=== PATIENT | female | born 1975 | race Caucasian/White ===

== ENCOUNTER 2016-03-08 05:45 | Inpatient (IN) | payer MEDICAID ==
[~2016-03-08] VITALS: Ht 149.9 cm; Wt 78.7 kg
[2016-03-08] VITALS (11 sets, daily range): BP systolic 120–143; BP diastolic 60–85; PULSE 61–77; RESP 18–20; Ht 149.9 cm; Wt 78.7 kg
[2016-03-08] MEDS ORDERED: LACTATED RINGER'S 1,000 ML IV SCH (06:11)
[2016-03-08] MEDS ORDERED: FOLI0.8C PO (06:15)
[2016-03-08] MEDS ORDERED: PREN1TAB62 PO (06:15)
[2016-03-08] MEDS ORDERED: FERR325C PO (06:16)
--- NOTE | 2016-03-08 06:28 | TRIAGE ---
OB Triage Datetime Report Generated by CPN: 03/08/2016 06:28 Datetime: 03/08/2016 06:28 Membrane Status: Intact Datetime: 03/08/2016 06:26 Stage of : Labor Time of Arrival: 03/08/2016 06:18 EGA: 38.6 Arrived By: Stretcher Arrived From: TRIAGE Datetime: 03/08/2016 06:13 Labor Evaluation Frequency: 2-4 Monitor Mode: External Duration (sec)2399: 90-120 Pattern: Normal: <= 5 Contractions in 10 Minutes Heart Rate FHR Baseline Rate: 145 Monitor Mode: External US FHR Baseline Changes: No Baseline Change Variability: Moderate 6-25 bpm Datetime: 03/08/2016 06:09 Vaginal Exam Dilatation (cms): 7.0 Effacement (%): 80 Station: -1 Exam By: SUJATA Vaginal Bleeding: None Cervix, Consistency: Soft Cervix, Position: Midposition Presentation 'A': Cephalic Datetime: 03/08/2016 05:58 Assessment Type: Triage Maternal Assessment Level of Consciousness: Fully Conscious DTR's/Clonus: DTRs 2+; No Clonus Headache: Denies Blurred Vision: No Respiratory Effort: Unlabored; Regular Rhythm; Equal Expansion Breath Sounds, Left: Clear and Equal Breath Sounds, Right: Clear and Equal Nausea/Vomiting: Denies RUQ Epigastric Pain: Denies Facial Edema: None Fall Risk Assessment History of Falling: (0) No Secondary Diagnosis: (0) No Ambulatory Aid: (0) Bedrest/Nurse Assist IV Therapy: (0) No Gait: (0) Normal/Bedrest/Immobile Mental Status: (0) Oriented to Own Ability Fall Score: 0 Fall Risk Score Definition: No Risk: No action required Datetime: 03/08/2016 05:57 EGA: 38.6 Datetime: 03/08/2016 05:56 Time of Arrival: 03/08/2016 05:45 Arrived By: Ambulatory Arrived From: Home Chief Complaint: UC'S SINCE 01:00 Movement: Present Contractions: Regular Time Contractions Began: 03/08/2016 01:00 Contractions: Q5MIN Rupture of Membranes: Denies Vaginal Bleeding: None Vaginal Discharge: Denies Recent Sexual Intercouse: Denies Abdominal Trauma: Not Applicable Patient Complaints: Contractions Time Provider Notified: 03/08/2016 06:25 Provider Notified: HOLGER Initial Plan: EFM, SVE, CALL OB Datetime: 03/08/2016 05:55 Monitor Mode: Palpation Quality: Mild
[2016-03-08] MEDS ORDERED: BUTORPHANOL 2 MG INJ IV PRN (06:30)
[2016-03-08] MEDS ORDERED: OXYTOCIN 30 UNITS/LR 500 ML IV SCH (06:30)
[2016-03-08] MEDS ORDERED: MISOPROSTOL 200 MCG TAB PR PRN (06:30)
[2016-03-08] MEDS ORDERED: OXYTOCIN 30 UNITS/LR 500 ML IV PRN (06:30)
[2016-03-08] MEDS ORDERED: LACTATED RINGER'S 1,000 ML IV PRN (06:30)
[2016-03-08] MEDS ORDERED: METHYLERGONOVINE 0.2 MG INJ IM PRN (06:30)
[2016-03-08] MEDS ORDERED: CARBOPROST 250 MCG INJ IM PRN (06:30)
[2016-03-08] MEDS ORDERED: AMPICILLIN 2 GM/NS (PMX) 100 ML IV ONE (06:30)
[2016-03-08 06:55] LABS: ADD UMIC YES; URINE BILIRUBIN (Dip) NEGATIVE (NEGATIVE); URINE BLOOD (Dip) 1+ (NEGATIVE); URINE COLOR LT. YELLOW (YELLOW); URINE GLUCOSE (Dip) NEGATIVE (NEGATIVE); URINE KETONES (Dip) NEGATIVE (NEGATIVE); URINE LEUKOCYTE ESTERASE (Dip) 2+ (NEGATIVE); URINE NITRITE (Dip) NEGATIVE (NEGATIVE); URINE TOTAL PROTEIN (Dip) NEGATIVE (NEGATIVE); URINE UROBILINOGEN (Dip) 0.2 E.U./dL (0.1-1.0)
[2016-03-08 07:22] LABS: BACTERIA,URINE FEW; SQUAMOUS EPITHELIAL CELL,UR MODERATE
[2016-03-08 07:26] LABS: BASOPHIL # 0.1 10^3/ul (0.0-0.1); BASOPHILS % 0.6 % (0.0-2.0); EOSINOPHILS % 0.2 % (0.0-7.0); HEMATOCRIT 39.5 % (37.0-47.0); HEMOGLOBIN 13.3 g/dl (12.0-16.0); LYMPHOCYTES % 23.8 % (15.0-51.0); MEAN CORPUSCULAR HEMOGLOBIN 31.2 pg (29.0-33.0); MEAN CORPUSCULAR HGB CONC 33.6 g/dl (32.0-37.0); MEAN CORPUSCULAR VOLUME 92.8 fl (82.0-101.0); MEAN PLATELET VOLUME 11.4 fl (7.4-10.4); MONOCYTE # 0.6 10^3/ul (0.3-0.9); MONOCYTES % 6.5 % (0.0-11.0); NEUTROPHIL # 5.9 10^3/ul (1.6-7.5); NEUTROPHILS % 68.9 % (39.0-77.0); PLATELET COUNT 119 10^3/UL (140-440); RED BLOOD COUNT 4.25 10^6/ul (4.20-5.40); RED CELL DISTRIBUTION WIDTH 14.1 % (11.5-14.5); UNCORRECTED WBC 8.5 10^3/ul (4.8-10.8); WHITE BLOOD COUNT 8.5 10^3/ul (4.8-10.8)
[2016-03-08 07:33] LABS: CONDITION 1
[2016-03-08 07:50] LABS: ALBUMIN 3.3 g/dl (3.3-4.9)
[2016-03-08 07:51] LABS: POTASSIUM 3.7 mmol/L (3.5-5.1)
[2016-03-08 07:53] LABS: BILIRUBIN,INDIRECT 0.3 mg/dl (0-1.1); BILIRUBIN,TOTAL 0.3 mg/dl (0.2-1.3); CREATININE 0.44 mg/dl (0.44-1.00)
[2016-03-08 07:54] LABS: ALBUMIN/GLOBULIN RATIO 0.94; CALCIUM 8.8 mg/dl (8.4-10.2); INR 0.91; PROTIME 12.3 Sec (12.2-14.2); TOTAL PROTEIN 6.8 g/dl (6.1-8.1); URIC ACID 4.6 mg/dl (3.1-7.9)
[2016-03-08] MEDS: OXYTOCIN 30 UNITS/LR 500 ML IV SCH ×5 (09:25→16:30)
[2016-03-08] MEDS: LIDOCAINE 1% (MPF) 30 ML INJ INJ PRN ×2 (09:25→11:04)
[2016-03-08] MEDS ORDERED: IBUPROFEN 600 MG TAB PO ONE (10:00)
--- NOTE | 2016-03-08 10:07 | LDN ---
Date/Time of Note Date/Time of Note DATE: 03/08/16 TIME: 10:04 Delivery Summary Normal spontaneous vaginal delivery of a baby boy from NELY position shoulder delivered without any difficulty followed with the rest of the baby's body, placenta spontaneous expulsion inspected complete patient sustained small perineal abrasion which was repaired with 3 interrupted 4/0 chromic catgut estimated blood loss 206 mL Placenta Delivered: Spontaneously Perineum intact?: No Perineal laceration repair: First degree perineal abrasion Anesthesia type: Local Sponge & Needle done & correct: Yes All needle counts correct: Yes Any foreign bodies felt in the: No Problems: BUTCH MCMAHON MD Mar 08, 2016 10:07
--- NOTE | 2016-03-08 10:14 | DELSUM ---
Delivery Summary A-C Datetime Report Generated by CPN: 03/08/2016 10:14 DELIVERY PERSONNEL [employer] Technician: Naomy Gibbs MATERNAL INFORMATION Delivery Anesthesia: Local Medications in Delivery: OXYT 30 UNITS Estimated Blood Loss (ml): 200 Placenta Cultured: No Maternal Complications: None LABOR SUMMARY EDC: 03/16/2016 00:00 No. Babies in Womb: 1 Attempted: No Labor Anesthesia: None LABOR INFORMATION Reason for Induction: Not Applicable Onset of Labor: 03/08/2016 01:00 Oxytocin: N/A Group B Beta Strep: Negative Group B Beta Strep: Negative Antibiotics # of Doses: 1 Steroids Given: None Reason Steroids Not Administered: Not Applicable MEMBRANES Membranes Rupture Method: Artificial Rupture of Membranes: 03/08/2016 08:14 Length of Rupture (hr): 1.08 Amniotic Fluid Color: Clear Amniotic Fluid Amount: Large Amniotic Fluid Odor: Normal STAGES OF LABOR Stage 3 hr: 0 Stage 3 min: 6 Total Time in Labor hr: 8 Total Time in Labor min: 25 VAGINAL DELIVERY Episiotomy: None Laceration Extension: First Degree Laceration Type: Perineal Laceration Repair: Yes Initial Vag Sponge Count: 20 Final Vag Sponge Count: 20 Initial Vag Sharps Count: 2 Final Vag Sharps Count: 2 Sponge Count Correct: Yes; Vaginal Sweep Performed Sharps Count Correct: Yes BABY A INFORMATION Infant Delivery Date/Time: 03/08/2016 09:19 Method of Delivery: Vaginal Born in Route : No : N/A Forceps: N/A Vacuum Extraction: N/A Shoulder Dystocia : N/A SHOULDER DYSTOCIA BABY A Infant Delivery Date/Time: 03/08/2016 09:19 PRESENTATION/POSITION BABY A Presentation: Cephalic Presentation: Cephalic Presentation: Cephalic Presentation: Cephalic Cephalic Presentation: Vertex Breech Presentation: N/A PLACENTA INFORMATION BABY A Placenta Delivery Time : 03/08/2016 09:25 Placenta Method of Delivery: Spontaneous Placenta Status: Delivered SCORES BABY A Heart Rate 1 min: >100 bpm Resp Effort 1 min: Good Cry Reflex Irritability 1 min: Cough/Sneeze/Pulls Away Muscle Tone 1 min: Active Motion Color 1 min: Body Morada, Extremit Blue Resuscitation Effort 1 min: Tactile Stimulation SCORE 1 MIN: 9 Heart Rate 5 min: >100 bpm Resp Effort 5 min: Good Cry Reflex Irritability 5 min: Cough/Sneeze/Pulls Away Muscle Tone 5 min: Active Motion Color 5 min: Body Morada, Extremit Blue Resuscitation Effort 5 min: N/A SCORE 5 MIN: 9 INFORMATION BABY A Gestational Age at Delivery: 38.6 Gestational Status: Early Term- 37- 38.6 Weeks Infant Outcome : Liveborn Infant Condition : Stable Infant Sex: Male IDENTIFICATION/MEDS BABY A ID Band Number: [id number] ID Band Location: Right Leg; Left Arm Sensor Applied: Yes Sensor Number: [id number] Sensor Location : Cord Clamp Vitamin K Given : Not Given Erythromycin Given: Not Given WEIGHT/LENGTH BABY A Birthweight (gm): 4285 Infant Weight (lb): 9 Weight (oz): 7 Infant Length (in): 19.75 Infant Length (cm): 50.17 CORD INFORMATION BABY A No. Cord Vessels: 3 Nuchal Cord : N/A Cord Blood Taken: Yes Infant Suction: Mouth; Nose ASSESSMENT BABY A Infant Complications: None Physical Findings at Delivery: Within Normal Limits Infant Respirations: Appears Normal Hide House Supervisor/ALS Called : Yes Care By: pop cook Transferred To: Remains with Mother
--- NOTE | 2016-03-08 10:14 | OPRPT ---
Intraop Record Datetime Report Generated by CPN: 03/08/2016 10:14 Datetime: 03/08/2016 06:02 Drug Allergies/Reactions: No Known Allergy (03/08/2016) Datetime: 03/08/2016 05:57 Drug Allergies/Reactions: PT. DENIES Food Allergies/Reactions: PT. DENIES Latex Allergies/Reactions: No Latex Allergies
--- NOTE | 2016-03-08 10:15 | HP ---
Date/Time of Note Date/Time of Note DATE: 03/08/16 TIME: 10:09 OB - History Hx of Present Free Text/Dictation 40 years old female 6 para 5 with a EDC March 16, 2016 admitted to [facility] in labor transferred to labor and delivery room for delivery This patient has been under the care of the [facility] [place] and her was not complicated with gestational diabetes or -induced hypertension . Obstetrical history; [place] at age 13 history of 5 previous pregnancies with normal vaginal delivery no other surgery or hospitalization recorded in the patient's . Chief Complaint: labor pain Estimated Due Date: Mar 20, 2016 : 6 Para: 5 Care: Good Care Ultrasounds: Normal mid trimester US Obstetrical Complications: None Medical Complications: None Past Family/Social History * Past Medical, Surgical, Family and Obstetric Histories reviewed from chart. Rubella: immune RPR/VDRL: Negative GBS Status: Negative HBsAG: Negative OB Admission Exam Vital Signs Vital Signs Vital Signs Date Time Temp Pulse Resp B/P Pulse Ox O2 Delivery O2 Flow Rate FiO2 03/08/16 09:52 76 20 137/71 Room Air 03/08/16 06:29 97.9 Physical Exam HEENT: WNL Heart: Rhythm Normal Lungs: Clear, Equal Abdomen: WNL Extremities: Normal Reflexes: Normal Cervical Dilatation: 2cm Effacement: 75% Station: -1 Membranes: Intact Heart Rate: 130's Accelerations: Accelerations Present Varibility: Moderate Contractions on Admission: 6-10 Minutes Apart Intensity: Moderate Last 72 hours Lab Results CBC & BMP 03/08/16 06:30 Liver Function Test 03/08/16 06:30 Alanine Aminotransferase (ALT/SGPT) 39 Albumin 3.3 Alkaline Phosphatase 149 H Aspartate Amino Transf (AST/SGOT) 25 Direct Bilirubin 0.00 Total Protein 6.8 BUTCH MCMAHON MD Mar 08, 2016 10:15
[2016-03-08] MEDS ORDERED: OXYCODONE/ASPIRIN (4.88/325) TAB PO ONE (10:30)
[2016-03-08] MEDS ORDERED: AMPICILLIN 1 GM/NS (PMX) 50 ML IV SCH (10:30)
[2016-03-08] MEDS ORDERED: ACETAMINOPHEN 325 MG TAB PO PRN (12:30)
[2016-03-08] MEDS ORDERED: ONDANSETRON 4 MG INJ IV PRN (12:30)
[2016-03-08] MEDS ORDERED: LANOLIN 7 GM TUBE TOP PRN (12:30)
[2016-03-08] MEDS ORDERED: BENZOCAINE 20% 56 ML SPRAY TOP PRN (12:30)
[2016-03-08] MEDS ORDERED: DIBUCAINE 1% 30 GM OINT PR PRN (12:30)
[2016-03-08] MEDS ORDERED: ACETAMINOPHEN/CODEINE #3 TAB PO PRN ×2 (12:30)
[2016-03-08] MEDS ORDERED: OXYCODONE/ASPIRIN (4.88/325) TAB PO PRN ×2 (12:30)
[2016-03-08] MEDS ORDERED: WITCH HAZEL/GLYCERIN PAD PR PRN (12:30)
[2016-03-08] MEDS: IBUPROFEN 600 MG TAB PO SCH ×2 (17:18→23:37)
[2016-03-08] MEDS: SENNA/DOCUSATE NA (8.6MG/50MG) TAB PO SCH (21:49)
[2016-03-09 04:00] VITALS: BP 125/72; PULSE 74; RESP 17
[2016-03-09] MEDS: IBUPROFEN 600 MG TAB PO SCH ×4 (05:45→23:35)
[2016-03-09 06:31] LABS: BASOPHILS % 0.3 % (0.0-2.0); EOSINOPHILS % 0.5 % (0.0-7.0); HEMATOCRIT 33.4 % (37.0-47.0); HEMOGLOBIN 11.5 g/dl (12.0-16.0); LYMPHOCYTES # 2.3 10^3/ul (0.8-2.9); MEAN CORPUSCULAR HEMOGLOBIN 31.9 pg (29.0-33.0); MEAN CORPUSCULAR HGB CONC 34.5 g/dl (32.0-37.0); MEAN CORPUSCULAR VOLUME 92.4 fl (82.0-101.0); MEAN PLATELET VOLUME 10.2 fl (7.4-10.4); MONOCYTE # 0.6 10^3/ul (0.3-0.9); MONOCYTES % 5.7 % (0.0-11.0); NEUTROPHIL # 7.1 10^3/ul (1.6-7.5); NEUTROPHILS % 70.5 % (39.0-77.0); PLATELET COUNT 105 10^3/UL (140-440); RED BLOOD COUNT 3.62 10^6/ul (4.20-5.40); RED CELL DISTRIBUTION WIDTH 14.3 % (11.5-14.5)
[2016-03-09 06:44] LABS: CONDITION 1
[2016-03-09 08:42] VITALS: BP 121/60; PULSE 74; RESP 18
[2016-03-09] MEDS: SENNA/DOCUSATE NA (8.6MG/50MG) TAB PO SCH ×2 (09:06→21:37)
--- NOTE | 2016-03-09 10:12 | PN ---
Date/Time of Note Date/Time of Note DATE: 03/09/16 TIME: 10:10 OB Subjective Subjective Subjective day 1 Afebrile vital sign is stable abdomen soft lochia normal extremity normal ambulation recommended lab review within normal possible discharge home BUTCH Eldridge MD Mar 09, 2016 10:11
[2016-03-09 15:53] VITALS: BP 113/53; PULSE 74; RESP 18
[2016-03-09 20:20] VITALS: BP 129/70; PULSE 68; RESP 18
[2016-03-10 04:10] VITALS: BP 114/64; PULSE 65; RESP 17
[2016-03-10] MEDS: IBUPROFEN 600 MG TAB PO SCH ×2 (05:21→12:12)
[2016-03-10 08:00] VITALS: BP 139/78; PULSE 74; RESP 18
[2016-03-10] MEDS ORDERED: MEASLES,MUMPS,RUBELLA VACCINE INJ SC* ONE (09:00)
[2016-03-10] MEDS: SENNA/DOCUSATE NA (8.6MG/50MG) TAB PO SCH (09:00)
--- NOTE | 2016-03-10 09:18 | PD.PPDC ---
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
--- NOTE | 2016-03-10 09:20 | DS ---
Date/Time of Note Date/Time of Note DATE: 03/10/16 TIME: 09:19 Obstetrical Discharge Record Final Diagnosis Final Diagnosis: Term delivered Vaginal Delivery Obstetrical Delivery: Spontaneous Condition on Discharge Physical Assessment Last Vitals: day 2 vital sign is stable abdomen soft uterus firm lochia normal extremity normal instructions given advised to make appointment in 2 weeks . Voiding: Yes Bowel Movement: Yes Breast: Soft, non-tender, Filling Fundus: Firm Calf Tenderness: No Patient Condition: Good BUTCH MCMAHON MD Mar 10, 2016 09:20
== END 2016-03-10 16:23 | disposition home or self-care (01) | DRG 775 ==
LOC: OBT 05:45 → L-D 05:45 → OBT 06:15 → L-D 06:15 → PP1 11:51
PROVIDERS: ADMIT Obstetrics & Gynecology; ATTEND Obstetrics & Gynecology
PROC: 10E0XZZ Delivery of Products of Conception, External Approach (ICD-10-PCS; principal; 2016-03-08)
PROC: 10907ZC Drainage of Amniotic Fluid, Therapeutic from Products of Conception, Via Natural or Artificial Opening (ICD-10-PCS; 2016-03-08)
PROC: 0HQ9XZZ Repair Perineum Skin, External Approach (ICD-10-PCS; 2016-03-08)
PROC: 4A1HXCZ Monitoring of Products of Conception, Cardiac Rate, External Approach (ICD-10-PCS; 2016-03-08)
DX: O70.0 First degree perineal laceration during delivery (principal); O09.523 Supervision of elderly multigravida, third trimester; Z3A.38 38 weeks gestation of pregnancy; Z37.0 Single live birth
CPT/HCPCS: 80053; 81001; 81003; 84560; 85025; 85384; 85610; 85730; 86592; 86900; 86901; G0463; J2590; J7120

== ENCOUNTER 2016-04-01 07:53 | Emergency (ER) | payer MEDICAID ==
[~2016-04-01] VITALS: Wt 68.5 kg
[~2016-04-01 07:53] MED LIST: FERR325C PO; FOLI0.8C PO; PREN1TAB62 PO
[2016-04-01] MEDS ORDERED: ONDANSETRON (ODT) 4 MG TAB ODT STA (08:44)
--- NOTE | 2016-04-01 08:48 | ERD ---
ER Documentation Chief Complaint Date/Time DATE: 04/01/16 TIME: 08:45 Chief Complaint headache and left eye pain. pt feels like bp is high. no neuro def HPI This patient is a 40-year-old female with history of hypertension presenting to the emergency department for headache which is been ongoing intermittently for the past 3 weeks, but worsening yesterday. The patient rates the pain a 7 7 out of 10 and states it is unilateral. The patient does have history of migraines. The patient additionally reports mild nausea but no vomiting or diarrhea. The patient denies any fevers, urinary symptoms, vision changes, dizziness, syncope, chest pain, shortness of breath, or other symptoms. ROS All systems reviewed and are negative except as per history of present illness. Medications Home Meds Reported Medications Ferrous Sulfate (Iron) 325 Mg Capsule.er, 325 MG PO, CAP 03/08/16 Folic Acid (Folic Acid) 0.8 Mg Capsule, 0.8 MG PO, CAP 03/08/16 Vit-Iron Fumarate-FA ( Vitamin Tablet) 1 Each Tablet, 1 TAB PO DAILY, TAB 03/08/16 Allergies Allergies: Coded Allergies: No Known Allergy (Unverified , 03/08/16) PMhx/Soc Medical and Surgical Hx: pt denies Medical Hx, pt denies Surgical Hx Hx Alcohol Use: No Hx Substance Use: No Hx Tobacco Use: No Smoking Status: Never smoker FmHx Noncontributory for chief complaint Physical Exam Vitals Vital Signs Date Time Temp Pulse Resp B/P Pulse Ox O2 Delivery O2 Flow Rate FiO2 04/01/16 11:00 139/83 04/01/16 10:00 166/98 04/01/16 09:03 156/92 04/01/16 09:02 172/76 04/01/16 07:57 98.2 76 21 163/82 99 Physical Exam INITIAL VITAL SIGNS: Reviewed by me. GENERAL: Alert and interactive. No acute distress. HEAD: Head is normocephalic and atraumatic. EYES: EOMI. No scleral icterus. No conjunctival injection. ENT: Moist mucosa. NECK: Supple. Full range of motion. RESPIRATORY: Normal respiratory effort. Clear breath sounds bilaterally. No wheezing, rales, or rhonchi. CV: Regular rate and rhythm. Normal S1 S2. No S3 or S4. No murmurs. ABDOMEN: Soft, non-distended, non-tender. No guarding. No rebound. No masses. EXTREMITIES: No deformity. SKIN: Warm and dry. NEUROLOGIC: Alert and oriented x 4. Speech is normal. Moves all extremities equally. No motor or sensory deficits noted. Cranial nerves are intact. Result Diagram: 04/01/1610 04/01/1610 Results 24 hrs Laboratory Tests Test 04/01/16 09:10 Activated Partial Thromboplast Time 29.1Sec Alanine Aminotransferase (ALT/SGPT) 45IU/L Albumin 4.1g/dl Albumin/Globulin Ratio 1.07 Alkaline Phosphatase 91IU/L Anion Gap 15 Aspartate Amino Transf (AST/SGOT) 26IU/L Basophils # 0.010^3/ul Basophils % 0.7% Blood Urea Nitrogen 9mg/dl Calcium Level 9.5mg/dl Carbon Dioxide Level 28mmol/L Chloride Level 104mmol/L Creatinine 0.60mg/dl Direct Bilirubin 0.00mg/dl Eosinophils # 0.110^3/ul Eosinophils % 1.8% Globulin 3.80g/dl Glucose Level 110mg/dl Hematocrit 44.4% Hemoglobin 15.5g/dl INR International Normalized Ratio 0.89 Indirect Bilirubin 0.3mg/dl Lymphocytes # 2.610^3/ul Lymphocytes % 35.5% Mean Corpuscular Hemoglobin 31.1pg Mean Corpuscular Hemoglobin Concent 35.0g/dl Mean Corpuscular Volume 88.8fl Mean Platelet Volume 10.0fl Monocytes # 0.410^3/ul Monocytes % 4.9% Neutrophils # 4.210^3/ul Neutrophils % 57.1% Nucleated Red Blood Cells # 0.010^3/ul Nucleated Red Blood Cells % 0.0/100WBC Platelet Count 84871^3/UL Potassium Level 3.9mmol/L Prothrombin Time 12.0Sec Prothrombin Time Ratio 0.9 Red Blood Count 5.0010^6/ul Red Cell Distribution Width 13.7% Sodium Level 143mmol/L Total Bilirubin 0.3mg/dl Total Protein 7.9g/dl Urine Bilirubin NEGATIVE Urine Clarity CLEAR Urine Color LT. YELLOW Urine Glucose NEGATIVE% Urine Hemoglobin 3+ Urine Ketones NEGATIVE Urine Leukocyte Esterase 2+ Urine Microscopic RBC 10-25/HPF Urine Microscopic WBC 10-25/HPF Urine Nitrite NEGATIVE Urine Specific [place] 1.015 Urine Squamous Epithelial Cells FEW Urine Total Protein NEGATIVE Urine Urobilinogen 0.2 E.U./dL Urine pH 7.0 White Blood Count 7.410^3/ul Current Medications Medications (Trade) Dose Ordered Sig/Annabel Route PRN Reason Start Time Stop Time Status Last Admin Dose Admin Acetaminophen/ Hydrocodone Bitart (Butner (5/325)) 1 tab ONCE ONCE PO 04/01/16 09:00 04/01/16 09:16 DC Ondansetron HCl (Zofran Odt) 4 mg ONCE STAT ODT 04/01/16 08:44 04/01/16 09:16 DC Acetaminophen (Tylenol Tab) 500 mg ONCE STAT PO 04/01/16 09:08 04/01/16 09:09 DC 04/01/16 09:16 Morphine Sulfate 4 mg 4 mg ONCE STAT IV 04/01/16 10:18 04/01/16 10:20 DC 04/01/16 10:29 Ceftriaxone Sodium (Rocephin) 50 ml @ 100 mls/hr ONCE ONCE IVPB 04/01/16 10:30 04/01/16 10:59 DC 04/01/16 10:28 Procedures/MDM 40-year-old female presents secondary to complaints of headache and mild nausea. On physical examination the patient's blood pressure slightly elevated at 163/82. On recheck the blood pressure was 172/86. I have ordered a CBC, CMP , PT, PTT, UA, looking for any signs of proteinuria or other abnormalities consistent with preeclampsia. Patient denies having history of high blood pressure. I spoke with the on-call laborist, Dr. Coyle, who recommended consulting the Internal Medicine doctor regarding this patient, since she is already 3 week post . The patient will be monitored closely in the department. The patient's blood pressure has reduced to 139/83 and she is feeling improved. I spoke with Dr. Moreno, supervising emergency department physician who advised to CT scan the patient's brain looking for any signs of encephalopathy or other abnormalities. He agreed with ED course and was kept aware of the patient's status during her time in the department. CT scan brain without contrast interpreted by radiologist: PROCEDURE: CT brain without contrast CLINICAL INDICATION: Headaches, hypertension, TECHNIQUE: CT of the brain without contrast was performed on a multidetector CT scanner, with multiplanar reformats. One or more of the following dose reduction techniques were used: Automated exposure control, adjustment in mA and / or kV according to patient size, use of iterative reconstructive technique. CTDIvol = 45 mGy; DLP = 630 mGy-cm. COMPARISON: None available FINDINGS: No acute intracranial hemorrhage is identified. No extra-axial fluid collection is seen. There is no mass effect. No midline shift is identified. Ventricles and sulci are within normal limits for size and configuration. The density of the brain is within normal limits. Phipps-white differentiation is preserved. Osseous structures are unremarkable. Noted are secretions in the right sphenoid sinus. IMPRESSION: No evidence of acute intracranial pathology; unremarkable noncontrast CT of the brain. I spoke with Dr. Rm, the OBGYN who was responsible for the patient's labor care while in this hospital. He stated that given the patient being more than 3 weeks post , and negative proteinuria in the urine, he is not concerned for post pre-eclampsia or other emergent conditions requiring his direct care at this time. He recommended controlling the patient's pain and blood pressure in the department, and then determining ED disposition. The patient's primary diagnosis is headache and I have very low concern for encephalopathy, intracranial hemorrhage, pre-eclampsia, based off of input by specialists in this field. The patient is hemodynamically stable for discharge and her questions and concerns were addressed. She agrees with diagnosis and plan. Departure Diagnosis: Primary Impression: Headache Condition: Stable Patient Instructions: Self-Care for Headaches Additional Instructions: No mas mejor en 2-3 dave, regresar. Mas peor en 24 horas, regresear rapidamente. Ir a doctor primario in 5-7 dave. Usar instrucciones cuando margo medicamento. NANNETTE ALONSO PA-C Apr 01, 2016 08:48
[2016-04-01] MEDS ORDERED: HYDROCODONE/APAP (5/325) TAB PO ONE (09:00)
[2016-04-01] MEDS ORDERED: ACETAMINOPHEN 500 MG TAB PO STA (09:08)
[2016-04-01 09:18] LABS: BASOPHILS % 0.7 % (0.0-2.0); EOSINOPHILS # 0.1 10^3/ul (0.0-0.5); EOSINOPHILS % 1.8 % (0.0-7.0); HEMATOCRIT 44.4 % (37.0-47.0); HEMOGLOBIN 15.5 g/dl (12.0-16.0); LYMPHOCYTES # 2.6 10^3/ul (0.8-2.9); LYMPHOCYTES % 35.5 % (15.0-51.0); MEAN CORPUSCULAR HEMOGLOBIN 31.1 pg (29.0-33.0); MEAN CORPUSCULAR VOLUME 88.8 fl (82.0-101.0); MONOCYTE # 0.4 10^3/ul (0.3-0.9); MONOCYTES % 4.9 % (0.0-11.0); NEUTROPHIL # 4.2 10^3/ul (1.6-7.5); NEUTROPHILS % 57.1 % (39.0-77.0); PLATELET COUNT 139 10^3/UL (140-440); RED CELL DISTRIBUTION WIDTH 13.7 % (11.5-14.5); UNCORRECTED WBC 7.4 10^3/ul (4.8-10.8); WHITE BLOOD COUNT 7.4 10^3/ul (4.8-10.8)
[2016-04-01 09:29] LABS: ALBUMIN 4.1 g/dl (3.3-4.9); INR 0.89; PT RATIO 0.9
[2016-04-01 09:30] LABS: PARTIAL THROMBOPLASTIN TIME 29.1 Sec (25.0-35.0); POTASSIUM 3.9 mmol/L (3.5-5.1)
[2016-04-01 09:32] LABS: BILIRUBIN,INDIRECT 0.3 mg/dl (0-1.1); BILIRUBIN,TOTAL 0.3 mg/dl (0.2-1.3); CONDITION 1; CREATININE 0.6 mg/dl (0.44-1.00)
[2016-04-01 09:33] LABS: ALBUMIN/GLOBULIN RATIO 1.07; CALCIUM 9.5 mg/dl (8.4-10.2); TOTAL PROTEIN 7.9 g/dl (6.1-8.1)
[2016-04-01 09:40] LABS: ADD UMIC YES; URINE BILIRUBIN (Dip) NEGATIVE (NEGATIVE); URINE BLOOD (Dip) 3+ (NEGATIVE); URINE COLOR LT. YELLOW (YELLOW); URINE GLUCOSE (Dip) NEGATIVE (NEGATIVE); URINE KETONES (Dip) NEGATIVE (NEGATIVE); URINE LEUKOCYTE ESTERASE (Dip) 2+ (NEGATIVE); URINE NITRITE (Dip) NEGATIVE (NEGATIVE); URINE TOTAL PROTEIN (Dip) NEGATIVE (NEGATIVE); URINE UROBILINOGEN (Dip) 0.2 E.U./dL (0.1-1.0)
[2016-04-01 09:56] LABS: SQUAMOUS EPITHELIAL CELL,UR FEW
[2016-04-01] MEDS ORDERED: morphine 4 MG/ML VIAL IV STA (10:18)
[2016-04-01] MEDS ORDERED: CEFTRIAXONE 1 GM/50 ML (PMX) 50 ML IVPB ONE (10:30)
[2016-04-01 11:00] VITALS: BP 139/83
--- NOTE | 2016-04-01 11:12 | RADRPT ---
PROCEDURE: CT brain without contrast CLINICAL INDICATION: Headaches, hypertension, TECHNIQUE: CT of the brain without contrast was performed on a multidetector CT scanner, with multi planar reformats. One or more of the following dose reduction techniques were used: Automated expos ure control, adjustment in mA and / or kV according to patient size, use of iterative reconstructive technique. CTDIvol = 45 mGy; DLP = 630 mGy-cm. COMPARISON: None available FINDINGS: No acute intracranial hemorrhage is identified. No extra-axial fluid collection is seen. There is no mass effect. No midline shift is identified. Ventricles and sulci are within normal limits for size and configuration. The density of the brain is within normal limits. Phipps-white differentiation is preserved. Osseous structures are unremarkable. Noted are secretions in the right sphenoid sinus. IMPRESSION: No evidence of acute intracranial pathology; unremarkable noncontrast CT of the brain. RPTAT: EE .Ildefonso Urbina MD, MD Date Time Electronically viewed and signed by .Ildefonso Urbina MD, on 04/01/2016 11:12 .O/
[2016-04-01] MEDS ORDERED: ACET325T33 PO (11:31)
[2016-04-01] MEDS ORDERED: CEPH-443 PO (11:31)
== END 2016-04-01 11:40 | disposition home or self-care (01) ==
LOC: FTE 07:53
DX: R51 Headache (principal); I10 Essential (primary) hypertension
CPT/HCPCS: 70450; 80053; 81001; 85025; 85610; 85730; J0696; J2270; Z7610; 81003; 96374; 96375

== ENCOUNTER 2016-06-06 15:09 | Outpatient (CLI) | payer MEDICAID ==
[~2016-06-06] VITALS: Ht 148.6 cm; Wt 68.2 kg
[~2016-06-06 15:09] MED LIST changes: +ACET325T33 PO; +CEPH-443 PO
[2016-06-06 15:17] VITALS: BP 131/78; PULSE 69; RESP 16; Ht 148.6 cm; Wt 68.2 kg
--- NOTE | 2016-06-06 15:33 | PN ---
Date/Time of Note Date/Time of Note DATE: 06/06/16 TIME: 15:23 Assessment/Plan Assessment/Plan Assessment/Plan [facility] Progress Note Date of Service: 06/06/16 Today's Impression & Plan: Stable and doing well. No indication for acute surgical intervention. No obvious signs or symptoms of post operative complications. 1. f/u with pcp 2. f/u with us prn Thank you very much for allowing us to participate in the care of this very nice patient and wonderful family. If there are any questions, please feel free to contact me at . Total visit time: 20 minutes, of which more than half was spent in [id number] discussion with the patient, possibly including time to discuss issues with family, as well as coordination of care with multiple other physicians and providers. Please note: Spelling or grammatical errors in this note are likely due to EHR/ dictation systems and are not reflective of patient care quality. Also please note that the dictation timestamp of this note does not necessarily reflected time of the visit for this service. Updated Clinical Summary: The patient is a very pleasant 40-year-old lady, mother of 5, with known history of cholelithiasis, being admitted through the emergency department at [facility] on 05/20/2016 with abdominal pain associated with nausea and vomiting and evidence of severe chronic cholecystitis. There was concern for emphysematous cholecystitis given the presence of air bubbles within the bile. Alternatively, those could be small stones. The patient certainly has a picture that is in need of surgical intervention. S/p an otherwise uncomplicated laparoscopic cholecystectomy on 05/22/16 with findings of chronic cholecystitis. D/c home 05/22/16. Comorbidities: 1. Chronic cholecystitis; s/p lap pushpa 05/22/16 with findings of chronic cholecystitis 2. History of gallstones with 1 prior visit to the emergency department 3. Status post 5 pregnancies, the youngest of which was 2 months ago 4. History of headaches Subjective: No major events or complaints since discharge. No major pain complaints. No N/V , SOB or CP. + bowel activity Objective: Vitals: reviewed; please also see EHR Physical Exam: Lungs: breathing comfortably without tachypnea; no audible wheezes, rales or rhonchi on gross exam Abd: Soft, non-tender, and non-distended; incisions c/d/i w/o obvious e/e/d/h; no peritoneal signs or guarding Skin: Appears pink and feels warm to touch. Neuro: Awake, alert and follows commands appropriately JUMA RICHEY M.D. Jun 06, 2016 15:33
== END 2016-06-06 17:00 | disposition home or self-care (01) ==
LOC: HPC 15:09
PROVIDERS: ATTEND Transplant Surgery
DX: K81.1 Chronic cholecystitis (principal)
CPT/HCPCS: G0463